=== PATIENT | female | born 1980 | race African-American/Black ===

== ENCOUNTER 2018-11-04 19:09 | Emergency (ER) | payer OTHER ==
--- NOTE | 2018-11-04 20:06 | ER Document Report ---
ED Medical Screen (RME) - General Chief Complaint: Vaginal Pain Stated Complaint: VAGINAL PAIN Time Seen by Provider: 11/04/18 20:00 Primary Care Provider: VIKRAM JUAN [Primary Care Provider] - Follow up as needed Information source: Patient Notes: Patient presents complaining of pressure to the vagina and feeling like something is falling out of her. Patient complains of dysuria and urinary frequency. Patient states she has been treating UTI symptoms with AZO [id number]. Patient denies any vaginal bleeding or discharge. I have greeted and performed a rapid initial assessment of this patient. A comprehensive ED assessment and evaluation of the patient, analysis of test results and completion of the medical decision making process will be conducted by additional ED providers. TRAVEL OUTSIDE OF THE [place] IN LAST 30 DAYS: No - Related Data Allergies/Adverse Reactions: No Known Allergies Allergy (Unverified 11/04/18 19:10) Past Medical History Pulmonary Medical History: Reports: Hx Asthma Renal/ Medical History: Denies: Hx Peritoneal Dialysis Past Surgical History: Reports: Hx Section Physical Exam - Vital signs Vitals: Temp Pulse Resp BP Pulse Ox 98.5 F 93 16 126/75 H 96 11/04/18 19:21 11/04/18 19:21 11/04/18 19:21 11/04/18 19:21 11/04/18 19:21 - General Notes: Patient with lower lumbar paraspinal tenderness Course - Vital Signs Vital signs: Temp Pulse Resp BP Pulse Ox 98.5 F 93 16 126/75 H 96 11/04/18 19:21 11/04/18 19:21 11/04/18 19:21 11/04/18 19:21 11/04/18 19:21 Doctor's Discharge - Discharge Referrals: VIKRAM JUAN [Primary Care Provider] - Follow up as needed
[2018-11-04 21:54] LABS: APPEARANCE,URINE CLOUDY; BILIRUBIN,URINE NEGATIVE (NEGATIVE); COLOR,URINE YELLOW; GLUCOSE, URINE NEGATIVE (NEGATIVE); KETONES,URINE NEGATIVE (NEGATIVE); LEUKOCYTE ESTERASE,URINE NEGATIVE (NEGATIVE); NITRITE,URINE NEGATIVE (NEGATIVE); PROTEIN,URINE NEGATIVE (NEGATIVE); UROBILINOGEN,URINE NEGATIVE mg/dL (<2.0)
[2018-11-05 01:04] VITALS: BP 120/74
--- NOTE | 2018-11-05 01:47 | ER Document Report ---
ED General - General Chief Complaint: Vaginal Pain Stated Complaint: VAGINAL PAIN Time Seen by Provider: 11/04/18 20:00 Primary Care Provider: VIKRMA JUAN [NO LOCAL MD] - Follow up as needed Notes: Patient is a 37-year-old female without chronic medical problems who presents with complaints of something falling out of her vagina. Patient states that for the past 1 to 2 weeks she has had frequent urinary urgency, discomfort with urination, and feeling like something is falling out of her vagina. Describes a aching, throbbing, intermittent discomfort generally to when she feels that she has to urinate. No exacerbating or alleviating factors. The patient has not seen her primary doctor or [facility] regarding today's concerns. Denies fever, constitutional symptoms or lower abdominal pain. TRAVEL OUTSIDE OF THE [place] IN LAST 30 DAYS: No - Related Data Allergies/Adverse Reactions: No Known Allergies Allergy (Unverified 11/04/18 19:10) Past Medical History - General Information source: Patient - Social History Smoking Status: Never Smoker Frequency of alcohol use: None Drug Abuse: None Lives with: Family Family History: Reviewed & Not Pertinent Patient has suicidal ideation: No Patient has homicidal ideation: No Pulmonary Medical History: Reports: Hx Asthma Renal/ Medical History: Denies: Hx Peritoneal Dialysis Past Surgical History: Reports: Hx Section Review of Systems - Review of Systems Notes: Constitutional: Negative for fever. HENT: Negative for sore throat. Eyes: Negative for visual changes. Cardiovascular: Negative for chest pain. Respiratory: Negative for shortness of breath. Gastrointestinal: Negative for abdominal pain, vomiting or diarrhea. Genitourinary: Positive for urinary frequency, bladder prolapse Musculoskeletal: Negative for back pain. Skin: Negative for rash. Neurological: Negative for headaches, weakness or numbness. 10 point ROS negative except as marked above and in HPI. Physical Exam - Vital signs Vitals: Temp Pulse Resp BP Pulse Ox 98.5 F 93 16 126/75 H 96 11/04/18 19:21 11/04/18 19:21 11/04/18 19:21 11/04/18 19:21 11/04/18 19:21 Interpretation: Normal Notes: PHYSICAL EXAMINATION: GENERAL: Well-appearing, well-nourished and in no acute distress. HEAD: Atraumatic, normocephalic. EYES: Pupils equal round and reactive to light, extraocular movements intact, sclera anicteric, conjunctiva are normal. ENT: nares patent, oropharynx clear without exudates. Moist mucous membranes. NECK: Normal range of motion, supple without lymphadenopathy LUNGS: Breath sounds clear to auscultation bilaterally and equal. No wheezes rales or rhonchi. HEART: Regular rate and rhythm without murmurs ABDOMEN: Soft, nontender, normoactive bowel sounds. No guarding, no rebound. No masses appreciated. : There is an apparent bladder prolapse. No cervical motion tenderness. No adnexal tenderness to palpation. EXTREMITIES: Normal range of motion, no pitting or edema. No cyanosis. NEUROLOGICAL: No focal neurological deficits. Moves all extremities spontaneously and on command. PSYCH: Normal mood, normal affect. SKIN: Warm, Dry, normal turgor, no rashes or lesions noted. Course - Re-evaluation Re-evalutation: 11/05/18 01:49 Findings are consistent with a bladder prolapse. Patient is otherwise well in appearance, no focal abdominal tenderness on exam. exam notable only for bladder prolapse. Urinalysis is unremarkable without evidence of infection. I have advised the patient follow-up with [facility] for consideration of surgical correction. At this time will discharge with return precautions and follow-up recommendations. Verbal discharge instructions given a the bedside and opportunity for questions given. Medication warnings reviewed. Patient is in agreement with this plan and has verbalized understanding of return precautions and the need for primary care follow-up in the next 24-72 hours. - Vital Signs Vital signs: Temp Pulse Resp BP Pulse Ox 97.9 F 86 18 120/74 99 11/05/18 01:02 11/05/18 01:02 11/05/18 01:02 11/05/18 01:02 11/05/18 01:02 - Laboratory Laboratory results interpreted by me: 11/04/18 20:34 Urine Blood MODERATE H Discharge - Discharge Clinical Impression: Urinary frequency, Bladder prolapse Condition: Good Disposition: HOME, SELF-CARE Additional Instructions: You were seen today for urinary frequency and feeling like something has fallen from her vagina. It appears that you have a bladder prolapse. I strongly encourage you to follow-up with [facility] for consideration of correction. Return to the emergency room immediately if you develop fever greater than 100.4 F, worsening pain, inability to urinate, pass out, severe abdominal pain, or dev elop any other symptoms that are worrisome to you. Referrals: LOCALMD,NO [NO LOCAL MD] - Follow up as needed DANE GONSALES MD [ACTIVE STAFF] - Follow up in 3-5 days
== END 2018-11-05 02:06 | disposition home or self-care (01) ==
LOC: ER 19:09
DX: R35.0 Frequency of micturition (principal); N81.10 Cystocele, unspecified; R10.2 Pelvic and perineal pain
CPT/HCPCS: 81001; 81025; 87086; 99283

== ENCOUNTER 2019-01-24 07:19 | Day surgery (SDC) | payer OTHER ==
[2019-01-21 11:03] LABS: HEMATOCRIT 44.4 % (36.0-47.0); HEMOGLOBIN 14.8 g/dL (12.0-15.5); MEAN CORPUSCULAR HEMOGLOBIN 28.4 pg (27.0-33.4); MEAN CORPUSCULAR HGB CONC 33.3 g/dL (32.0-36.0); MEAN CORPUSCULAR VOLUME 85 fl (80-97); PLATELET COUNT 245 10^3/uL (150-450)
[2019-01-21 11:29] LABS: ALBUMIN 4.5 g/dL (3.5-5.0); ALKALINE PHOSPHATASE 59 U/L (38-126); ANION GAP 12 (5-19); ASPARTATE AMINO TRANSFERASE 17 U/L (14-36); BILIRUBIN,DIRECT 0.2 mg/dL (0.0-0.4); BILIRUBIN,TOTAL 0.3 mg/dL (0.2-1.3); BLOOD UREA NITROGEN 14 mg/dL (7-20); CALCIUM 9.9 mg/dL (8.4-10.2); CARBON DIOXIDE 25 mmol/L (22-30); CHLORIDE 104 mmol/L (98-107); GLUCOSE 88 mg/dL (75-110); POTASSIUM 4.1 mmol/L (3.6-5.0); TOTAL PROTEIN 7.2 g/dL (6.3-8.2)
[2019-01-21 12:07] LABS: AMORPHOUS SEDIMENT,URINE TRACE /HPF; APPEARANCE,URINE CLOUDY; BILIRUBIN,URINE NEGATIVE (NEGATIVE); COLOR,URINE YELLOW; GLUCOSE, URINE NEGATIVE (NEGATIVE); KETONES,URINE NEGATIVE (NEGATIVE); LEUKOCYTE ESTERASE,URINE NEGATIVE (NEGATIVE); NITRITE,URINE NEGATIVE (NEGATIVE); PROTEIN,URINE NEGATIVE (NEGATIVE); UROBILINOGEN,URINE NEGATIVE mg/dL (<2.0)
[~2019-01-24 07:19] MED LIST: CEFAZOLIN SODIUM 2 GM in DEXTROSE 5%-WATER 100 ML IV PRN; LACTATED RINGERS 1000 ML IV PRN
[2019-01-24] MEDS ORDERED: LIDOCAINE 1%/EPINEPHRINE INJ 20 ML VIAL ONE (07:34)
[2019-01-24] MEDS ORDERED: BUPIVACAINE HCL 0.25% /EPINEPHRINE INJ/PF 30 ML SDV ONE (07:35)
[2019-01-24] MEDS ORDERED: FENTANYL CITRATE INJ/PF 250 MCG/5 ML AMPULE ONE (09:56)
[2019-01-24] MEDS ORDERED: PROPOFOL INJ 200 MG/20 ML VIAL IV ONE (09:57)
[2019-01-24] MEDS ORDERED: MIDAZOLAM 2 MG/2 ML INJ ONE (09:57)
[2019-01-24] MEDS ORDERED: DIPHENHYDRAMINE HCL 50 MG/ML VIAL IV PRN (10:04)
[2019-01-24] MEDS ORDERED: FENTANYL CITRATE INJ/PF 100 MCG/2 ML AMPUL IV PRN ×3 (10:04)
[2019-01-24] MEDS ORDERED: MEPERIDINE HCL/PF INJ 25 MG/1 ML DISP.SYRIN IV PRN (10:04)
[2019-01-24] MEDS ORDERED: OXYCODONE-ACETAMINOPHEN 5-325 MG TABLET PO PRN ×4 (10:04→14:38)
[2019-01-24] MEDS ORDERED: PROMETHAZINE HCL INJ 25 MG/1 ML VIAL IV PRN ×3 (10:04→14:38)
[2019-01-24] MEDS ORDERED: BUPIVACAINE HCL 0.25 % INJ/PF (2.5 MG/1 ML) 30 ML VIAL ONE (10:05)
[2019-01-24] MEDS ORDERED: EPHEDRINE SULFATE INJ 50 MG/1 ML AMPULE ONE (11:34)
[2019-01-24] MEDS ORDERED: HYDROMORPHONE HCL INJ/PF 2 MG/ML AMPULE ONE (13:01)
[2019-01-24] MEDS ORDERED: METHYLENE BLUE 50 MG/10 ML AMPULE ONE (14:08)
[2019-01-24] MEDS ORDERED: ACETAMINOPHEN 1,000 MG/100 ML RTUPB IV PRN (14:38)
[2019-01-24] MEDS ORDERED: ACETAMINOPHEN 325 MG TABLET PO PRN (14:38)
[2019-01-24] MEDS ORDERED: DEXTROSE 40% GEL 15 GM TUBE PO PRN ×2 (14:38)
[2019-01-24] MEDS ORDERED: GLUCAGON,HUMAN RECOMB 1 MG INJ SUBCUT PRN (14:38)
[2019-01-24] MEDS ORDERED: DEXTROSE 50%-WATER 25 GM/50 ML DISP.SYRIN IV PRN ×2 (14:38)
[2019-01-24] MEDS ORDERED: HYDROMORPHONE HCL INJ/PF 2 MG/ML AMPULE IV PRN (14:38)
--- NOTE | 2019-01-24 14:46 | Brief Operative Note ---
BRIEF OPERATIVE REPORT DATE OF SURGERY: 01/24/19 TIME OF SURGERY: 10:00 PREOPERATIVE DIAGNOSIS: 1. Uterine prolapse. 2. Cystocele POSTOPERATIVE DIAGNOSIS: same plus mild cystocele SURGEON: MEERA HILL [address] PACKER OPERATOR: BALBINA LOPEZ FINDINGS: Uterus measured 9 x 5 cm; normal appearing bilateral fallopian tubes and ovaries; baldder scarring secondary to hisoryof section COMPLICATIONS: none ESTIMATED BLOOD LOSS: 750 ml TISSUE REMOVED OR ALTERED: Uterus, bilateral tubes and ovaries TECHNICAL PROCEDURE: 1. LAVHBSO. 2. Cystoscopy
[2019-01-24] MEDS ORDERED: CEFAZOLIN INJ 1 GM VIAL ONE (14:48)
[2019-01-24] MEDS ORDERED: CEFAZOLIN 1 GM/D5W RTU 1 GM/50 ML RTUPB IV SCH ×2 (15:00→22:00)
[2019-01-24] MEDS: KETOROLAC TROMETHAMINE INJ/PF 30 MG/1 ML SDV IV SCH (17:08)
[2019-01-24] MEDS: RINGERS SOLUTION,LACTATED 1,000 ML IV PRN (17:14)
[2019-01-24] MEDS ORDERED: IBUPROFEN 800 MG TABLET PO SCH (18:00)
[2019-01-24] MEDS: DOCUSATE SODIUM 100 MG CAPSULE PO SCH (18:10)
--- NOTE | 2019-01-24 18:22 | Operative Report ---
Operative Report DATE OF SURGERY: 01/24/19 PREOPERATIVE DIAGNOSIS: 1. Uterine prolapse. 2. Mild cystocele. 3. History of breast cancer POSTOPERATIVE DIAGNOSIS: Same OPERATION: 1. Laparoscopic assisted vaginal hysterectomy with bilateral salpingo-oophorectomy. 2. Cystoscopy SURGEON: MEERA HILL [address] PRODUCER: BALBINA LOPEZ ANESTHESIA: GA TISSUE REMOVED OR ALTERED: Uterus, bilateral tubes and ovaries COMPLICATIONS: None QUANTITATIVE BLOOD LOSS: 750 INTRAOPERATIVE FINDINGS: Normal-appearing uterus, which measured 9 x 5 cm; normal-appearing bilateral fallopian tubes and ovaries; mild cystocele PROCEDURE: The patient was taken to the operating room where general anesthesia was obtained. The patient was then prepped and placed in the dorsal supine position with lithotomy and prepped and draped in the usual fashion. A speculum was then placed in the patient's vagina and the cervix grasped with a single-tooth tenaculum at approximately the 12 o'clock position of the anterior lip of the cervix. The large V-Care device was then placed and suture placed at the 12 o'clock position as well in order to maintain cut against the cervix during procedure. Double-tooth tenaculum and speculum were then removed from the patient's cervix and vagina. Attention was then turned to the abdomen where a 5 mm umbilical skin incision was made and the trocar and laparoscope were inserted into the abdominal cavity. The abdomen was insufflated with carbon dioxide approximately 4 L. Survey of the patient's abdomen and pelvis were performed with findings as noted above. At this time 5mm skin incisions were made approximately 2 cm medial and 4 cm s uperior to the anterior iliac spine on both the left and the right and then a third and fourth trocar sites placed approximately 4 cm superior to these on both the left and right. 5 mm trochars placed at all of the sites. At this time the right cornua was grasped and the right fallopian tube and utero-ovarian ligament and round ligaments were cauterized and transected in the usual fashion with the Enseal device. The right and left fallopian tubes and ovaries were then transected and placed in the posterior cul-de-sac, for later retrieval. The remainder of the uterine vessels and anterior and posterior leaves of the broad ligament, as well as cardinal and uterosacral ligaments were coagulated and transected in a serial fashion down to the level of the uterine artery. The uterine artery was then identified and cauterized and transected in the usual fashion with the Enseal device. The anterior leaf of the broad ligament was then dissected to the midline establishing a bladder flap with a combination of blunt and sharp dissection. It was noted that the patient had bladder scarring secondary to her history of a section. The J-hook cautery was used to help dissect the peritoneum to create the bladder flap. Sharp dissection made superiorly bilaterally to the level of the internal os of the cervix. Cautery was then used to make the anterior and posterior colpotomies over the V-care device in a circumferential fashion. When the first cut was made, the balloon (tip) of the V care device perforated through the lower uterine segment. The pneumoperitoneum was then lost. Dr. Lopez into the vagina and tried to reposition the V care device without success. Therefore, the rest of the hysterectomy was performed vaginally. The CO2 gas was then turned off. A weighted speculum was then placed in the patient's vagina. The anterior lip of the cervix was then grasped with a Marianela tenaculum. Next, the cervix was circumferentially incised with a Bovie and the bladder dissected off the pubovesical cervical fascia anteriorly with an open Ray-Klaudia and Metzenbaum scissors. The posterior cul-de-sac was then entered sharply. At this point, a Jonh clamp was placed over the uterosacral ligaments on either side. They were then transected and suture ligated with 0 Vicryl. Hemostasis was noted. The cardinal ligaments were then clamped on both sides, transected and suture-ligated in a similar fashion. Attempt was made to enter anteriorly but the plane was not located. The uterine arteries and the anne-marie ligament were then serially clamped with Jonh clamps, transected and suture- ligated on both sides. There was bleeding noted. The fundus of the uterus was then grasped with Marianela tenaculums and flipped and brought out of the vagina. Both ovaries and tubes were located in the posterior cul-de-sac and removed. Both specimens were passed off to the OR tech. Attention was then turned to closing the vaginal cuff. The peritoneum was then closed with 2-0 Vicryl. The angles were then closed in a [id number] stitches of 0 Vicryl and transfixed to the ipsilateral cardinal and uterosacral ligaments. The remainder of the vaginal cuff was then closed with 0 Vicryl in an interrupted fashion. Hemostasis was noted. Attention was then returned to the patient's abdomen where the CO2 gas was then turned back on. Evaluation of the vaginal cuff showed a small amount of oozing, which FloSeal was placed. The abdomen was copiously irrigated with warm normal saline. Attention was then turned to the patient's bladder, where she was given methyle ne blue, prior to evaluating the bladder for any ureteral injury. Dr. Lopez performed the cystoscopy while I placed a FloSeal and took laparoscopic pictures. When hemostasis was assured inside of the abdomen, I closed all 5 abdominal port sites with 4-0 Vicryl, while Dr. Lopez proceeded with the cystoscopy. Methylene blue was seen jetting from the right and left ureteral orifices. The scope was then removed from the patient's bladder and the Sow catheter was replaced. Patient tolerated the procedures well. Sponge, lap, needle and instrument counts were correct x2. Patient was given 2 g of Ancef prior to the start of the procedure. The patient taken to the recovery room in stable condition. Dr. Lopez's assistance was vital in performing this surgery in a efficient and timely fashion.
[2019-01-24] MEDS ORDERED: HYDROMORPHONE HCL 2 MG TABLET PO PRN (18:27)
[2019-01-24] MEDS ORDERED: ACETAMINOPHEN WITH CODEINE #3 TABLET PO PRN (18:28)
[2019-01-24] MEDS ORDERED: ACETAMINOPHEN WITH CODEINE #3 TABLET ONE (18:49)
[2019-01-24] MEDS ORDERED: ROCURONIUM BROMIDE INJ 50 MG/5 ML VIAL IV ONE (20:34)
[2019-01-24] MEDS ORDERED: DEXAMETHASONE SOD PHOSPHATE INJ 4 MG/1 ML VIAL ONE (20:34)
[2019-01-24] MEDS ORDERED: ONDANSETRON HCL INJ/PF 4 MG/2 ML SDV ONE (20:34)
[2019-01-24] MEDS ORDERED: GLYCOPYRROLATE 1 MG/5 ML VIAL ONE (20:34)
[2019-01-24] MEDS ORDERED: LIDOCAINE 2% INJ-PF (20 MG/ML) 2 ML AMPUL ONE (20:34)
[2019-01-24] MEDS ORDERED: NEOSTIGMINE METHYLSULFATE 10 MG/10 ML VIAL ONE (20:34)
[2019-01-24] MEDS: ACETAMINOPHEN WITH CODEINE #3 TABLET PO PRN (21:51)
[2019-01-24] MEDS ORDERED: KETOROLAC TROMETHAMINE INJ/PF 30 MG/1 ML SDV IV SCH ×2 (22:00)
[2019-01-24] MEDS: CEFAZOLIN SODIUM 1 GM in DEXTROSE 5%-WATER 50 ML IV SCH (23:42)
[2019-01-24] MEDS: HYDROMORPHONE HCL INJ/PF 2 MG/ML AMPULE IV PRN (23:54)
[2019-01-25] MEDS: RINGERS SOLUTION,LACTATED 1,000 ML IV PRN (01:44)
[2019-01-25] MEDS: KETOROLAC TROMETHAMINE INJ/PF 30 MG/1 ML SDV IV SCH ×2 (02:14→09:10)
[2019-01-25] MEDS ORDERED: PHENAZOPYRIDINE HCL 200 MG TABLET ONE (05:10)
[2019-01-25] MEDS: CEFAZOLIN SODIUM 1 GM in DEXTROSE 5%-WATER 50 ML IV SCH (05:44)
[2019-01-25] MEDS: ACETAMINOPHEN WITH CODEINE #3 TABLET PO PRN ×2 (05:45→15:04)
[2019-01-25] MEDS: PHENAZOPYRIDINE HCL 200 MG TABLET PO SCH ×2 (05:45→15:05)
[2019-01-25 07:50] LABS: HEMATOCRIT 32.3 % (36.0-47.0); HEMOGLOBIN 10.8 g/dL (12.0-15.5); MEAN CORPUSCULAR HEMOGLOBIN 28.3 pg (27.0-33.4); MEAN CORPUSCULAR HGB CONC 33.4 g/dL (32.0-36.0); MEAN CORPUSCULAR VOLUME 85 fl (80-97); PLATELET COUNT 243 10^3/uL (150-450); RED BLOOD COUNT 3.81 10^6/uL (3.72-5.28); RED CELL DISTRIBUTION WIDTH 13.7 % (11.5-14.0); WHITE BLOOD COUNT 13.6 10^3/uL (4.0-10.5)
[2019-01-25] MEDS: DOCUSATE SODIUM 100 MG CAPSULE PO SCH (09:12)
[2019-01-25] MEDS: HYDROMORPHONE HCL INJ/PF 2 MG/ML AMPULE IV PRN (09:27)
[2019-01-25] MEDS: SIMETHICONE 80 MG TAB.CHEW PO PRN ×2 (10:02→16:29)
[2019-01-25] MEDS ORDERED: LORAZEPAM INJ 2 MG/1 ML VIAL IV ONE (11:35)
--- NOTE | 2019-01-25 11:58 | PDOC DISCHARGE SUMMARY ---
General - Admit/Disc Date/PCP Admission Date/Primary Care Provider: CHASIDY LOERA MD Discharge Date: 01/25/19 - Discharge Diagnosis (1) S/P laparoscopic assisted vaginal hysterectomy (LAV[facility]) Is this a current diagnosis for this admission?: Yes (2) Female genital prolapse Is this a current diagnosis for this admission?: Yes (3) OAB (overactive bladder) Is this a current diagnosis for this admission?: Yes - Additional Information Resuscitation Status: Full Code Discharge Diet: Regular Discharge Activity: Balance Activity w/Rest, No Lifting Over 10 Pounds, Slowly Increase Activity Home Medications: Albuterol Sulfate [Proair Hfa Inhalation Aerosol 8.5 gm Mdi] 1 puff IH Q4 PRN 11/05/18 Fluticasone Propionate [Flovent HFA 220 mcg MDI] 1 puff IH PRN PRN 11/05/18 Phenazopyridine HCl [Azo Urinary Pain Relief] 97.5 mg PO PRN PRN 11/05/18 Montelukast Sodium [Singulair 10 mg Tablet] 10 mg PO DAILY 01/21/19 Oxybutynin Chloride [Ditropan 5 Mg Tablet] 5 mg PO DAILY 01/24/19 Sertraline HCl [Zoloft 50 mg Tablet] 50 mg PO DAILY 01/24/19 History of Present Illness Patient complains of: I feel like something is falling out of my vagina History of Present Illness: BRAXTON CASANOVA is a 38 year old female presented to the office c omplaining of feeling a bulge in her vagina. On examination, she had uterine prolapse with a mild cystocele. She also has overactive bladder and is currently using Ditropan. This patient requested a hysterectomy. We reviewed her family history. She has several maternal relatives with breast cancer, therefore she decided to have her ovaries removed also. Hospital Course Hospital Course: Hospital course was essentially uneventful by postop day #1, the patient was ambulating without difficulty. She was complaining of bladder spasms and was given Pyridium. I explained to her that the Sow catheter can cause some spasms. She denies chest pain, shortness of breath, fever/chills and nausea/vomiting. She is tolerating a regular diet. She has scant vaginal bleeding. She is more painful than she expected. However, her Tylenol with codeine relieves her pain. Physical Exam - Physical Exam Vital Signs: Temp Pulse Resp BP Pulse Ox 98.1 F 101 H 14 109/58 L 96 01/25/19 08:02 01/25/19 08:02 01/25/19 08:02 01/25/19 08:02 01/25/19 08:02 Intake & Output 01/24/19 01/25/19 01/26/19 06:59 06:59 06:59 Intake Total 5290 Output Total 2225 300 Balance 3065 -300 Weight 81.65 kg General appearance: PRESENT: no acute distress Respiratory exam: PRESENT: clear to auscultation arabella Cardiovascular exam: PRESENT: RRR GI/Abdominal exam: PRESENT: normal bowel sounds, soft - Appropriate tenderness; all port site incisions clean/dry/intact Extremities exam: ABSENT: calf tenderness, clubbing, full ROM, joint swelling, pedal edema, tenderness, +1 edema, +2 edema, other Result Laboratory Results: 01/25/19 07:16 01/21/19 10:23 01/25/19 07:16 WBC 13.6 H RBC 3.81 Hgb 10.8 L Hct 32.3 L MCV 85 MCH 28.3 MCHC 33.4 RDW 13.7 Plt Count 243 Plan Discharge Plan: 1. Discharge home today 2. Rx Climara patch, Tylenol with codeine, ibuprofen 800 mg and Ativan 0.5 mg 3. Follow-up in the office as scheduled or sooner if needed Acute Heart Failure - Is this a Heart Failure Patient?: No
[2019-01-25] MEDS ORDERED: ESTRADIOL 0.1 MG/24 HR PATCH.TDWK TD ONE (13:00)
[2019-01-25] MEDS ORDERED: IBUPROFEN 800 MG TABLET PO SCH (16:00)
[2019-01-25 16:20] VITALS: BP 110/59
== END 2019-01-25 16:51 | disposition home or self-care (01) ==
LOC: OROUT 07:19 → 2N 16:33 → OROUT 01-25 16:51
PROVIDERS: ATTEND Obstetrics & Gynecology
DX: D25.1 Intramural leiomyoma of uterus (principal); D25.2 Subserosal leiomyoma of uterus; N83.02 Follicular cyst of left ovary; N83.01 Follicular cyst of right ovary; N83.8 Other noninflammatory disorders of ovary, fallopian tube and broad ligament; N81.9 Female genital prolapse, unspecified; N32.81 Overactive bladder; Z79.51 Long term (current) use of inhaled steroids; Z79.899 Other long term (current) drug therapy; J45.909 Unspecified asthma, uncomplicated; Z01.818 Encounter for other preprocedural examination; N81.10 Cystocele, unspecified; Z85.3 Personal history of malignant neoplasm of breast
CPT/HCPCS: 86900; 86901; 36415 ×2; 86850; 84703; 85027 ×2; 81025; 80053; 81001; 88307 ×2; 94799; 00840; 58552; J2250; J0690 ×2; J3490 ×6; J1100; J3010; J1885 ×2; J2710; J1170 ×2; J2060; J2405; J7060 ×3; J7120 ×2; J2704; Q9968; 840

== ENCOUNTER 2019-01-29 19:50 | Emergency (ER) | payer OTHER ==
[2019-01-29] MEDS ORDERED: PHENAZOPYRIDINE HCL 200 MG TABLET PO ONE (21:03)
--- NOTE | 2019-01-29 21:05 | ER Document Report ---
ED Medical Screen (RME) - General Chief Complaint: Vaginal Pain Stated Complaint: VAGINAL PAIN Time Seen by Provider: 01/29/19 20:59 Primary Care Provider: CHASIDY LOERA MD [Primary Care Provider] - Follow up as needed Mode of Arrival: Ambulatory Information source: Patient Notes: This 38-year-old female presents with complaints of severe vaginal pain pain with void urgency hesitancy. Patient reports she had a full hysterectomy on Sunday by Dr. culp. She reports she started having pain today. She is unsure of fevers reports she is had chills. Reports she is been taking Tylenol for the pain nothing is touching it. She reports she feels like she is swollen and has extreme pain. She reports she contacted Dr. culp today and was told that she probably did not have a UTI because she had plenty of antibiotics during her surgery. Patient is not taking antibiotics now. I have greeted and performed a rapid initial assessment of this patient. A comprehensive ED assessment and evaluation of the patient, analysis of test results and completion of the medical decision making process will be conducted by additional ED providers. Dictation of this chart was performed using voice recognition software; therefore, there may be some unintended grammatical errors. TRAVEL OUTSIDE OF THE [place] IN LAST 30 DAYS: No - Related Data Allergies/Adverse Reactions: Latex, Natural Rubber Adverse Reaction (Verified 01/21/19 10:44) Past Medical History - Social History Frequency of alcohol use: None Drug Abuse: None - Past Medical History Cardiac Medical History: Denies: Hx Coronary Artery Disease, Hx Hypertension Pulmonary Medical History: Reports: Hx Asthma - MILD, Hx Bronchitis Denies: Hx COPD, Hx Pneumonia Neurological Medical History: Denies: Hx Cerebrovascular Accident, Hx Seizures Renal/ Medical History: Denies: Hx Peritoneal Dialysis Malignancy Medical History: Musculoskeltal Medical History: Denies Hx Arthritis Past Surgical History: Reports: Hx Section - Immunizations Hx Diphtheria, Pertussis, Tetanus Vaccination: Yes Physical Exam - Vital signs Vitals: Temp Pulse Resp BP Pulse Ox 98.8 F 88 24 H 119/69 100 01/29/19 20:17 01/29/19 20:17 01/29/19 20:17 01/29/19 20:17 01/29/19 20:17 Course - Vital Signs Vital signs: Temp Pulse Resp BP Pulse Ox 98.8 F 88 24 H 119/69 100 01/29/19 20:17 01/29/19 20:17 01/29/19 20:17 01/29/19 20:17 01/29/19 20:17 Doctor's Discharge - Discharge Referrals: CHASIDY LOERA MD [Primary Care Provider] - Follow up as needed
[2019-01-29 21:22] LABS: APPEARANCE,URINE SLIGHTLY-CLOUDY; BILIRUBIN,URINE NEGATIVE (NEGATIVE); COLOR,URINE AMBER; GLUCOSE, URINE NEGATIVE (NEGATIVE); KETONES,URINE NEGATIVE (NEGATIVE); LEUKOCYTE ESTERASE,URINE MODERATE (NEGATIVE); NITRITE,URINE POSITIVE (NEGATIVE); PROTEIN,URINE 30 mg/dL (NEGATIVE); URINE SPECIFIC GRAVITY 1.011
[2019-01-29 21:36] LABS: ABSOLUTE EOSINOPHILS # (AUTO) 0.1 10^3/uL (0.0-0.6); ABSOLUTE LYMPHOCYTES (AUTO) 1.5 10^3/uL (0.5-4.7); ABSOLUTE MONOCYTES (AUTO) 0.5 10^3/uL (0.1-1.4); ABSOLUTE NEUT (AUTO) 3.7 10^3/uL (1.7-8.2); BASOPHILS % (AUTO) 0.5 % (0-2); EOSINOPHILS % (AUTO) 2.4 % (0-6); HEMATOCRIT 35.4 % (36.0-47.0); HEMOGLOBIN 11.7 g/dL (12.0-15.5); LYMPHOCYTES % (AUTO) 25.7 % (13-45); MEAN CORPUSCULAR HEMOGLOBIN 28.1 pg (27.0-33.4); MEAN CORPUSCULAR HGB CONC 33.1 g/dL (32.0-36.0); MEAN CORPUSCULAR VOLUME 85 fl (80-97); MONOCYTES % (AUTO) 8.4 % (3-13); PLATELET COUNT 342 10^3/uL (150-450); RED BLOOD COUNT 4.17 10^6/uL (3.72-5.28); RED CELL DISTRIBUTION WIDTH 13.7 % (11.5-14.0); TOTAL CELLS COUNTED % (AUTO) 100 %; WHITE BLOOD COUNT 5.8 10^3/uL (4.0-10.5)
[2019-01-29 21:59] LABS: ALBUMIN 4.3 g/dL (3.5-5.0); ALKALINE PHOSPHATASE 57 U/L (38-126); ANION GAP 10 (5-19); ASPARTATE AMINO TRANSFERASE 18 U/L (14-36); BILIRUBIN,TOTAL 0.3 mg/dL (0.2-1.3); BLOOD UREA NITROGEN 11 mg/dL (7-20); CALCIUM 9.8 mg/dL (8.4-10.2); CARBON DIOXIDE 27 mmol/L (22-30); CHLORIDE 103 mmol/L (98-107); GLUCOSE 94 mg/dL (75-110); POTASSIUM 4.2 mmol/L (3.6-5.0)
[2019-01-30] MEDS ORDERED: ONDANSETRON HCL INJ/PF 4 MG/2 ML SDV IV ONE (03:07)
[2019-01-30] MEDS ORDERED: MORPHINE SULFATE 10 MG/ML INJ IV ONE (03:07)
--- NOTE | 2019-01-30 03:31 | ER Document Report ---
ED GI/ - General Chief Complaint: Vaginal Pain Stated Complaint: VAGINAL PAIN Time Seen by Provider: 01/29/19 20:59 Primary Care Provider: MEERA COSBY DO [ACTIVE STAFF] - Follow up tomorrow Mode of Arrival: Ambulatory Notes: Patient is a 38-year-old female that comes to the emergency department for chief complaint of lower abdominal pain and painful urination. She states she is approximately 6 days postop total vaginal hysterectomy by Dr. Figueroa at this hospital. She states she was doing reasonably well but now she has had increasing pain and specifically a lot of pain with urination. She states she does not have any bleeding unless she urinates. She denies vaginal discharge. She denies fever/chills, vomiting, flank pain. TRAVEL OUTSIDE OF THE [place] IN LAST 30 DAYS: No - Related Data Allergies/Adverse Reactions: Latex, Natural Rubber Adverse Reaction (Verified 01/21/19 10:44) Past Medical History - General Information source: Patient - Social History Smoking Status: Never Smoker Frequency of alcohol use: None Drug Abuse: None Lives with: Family Family History: Reviewed & Not Pertinent Patient has suicidal ideation: No Patient has homicidal ideation: No - Past Medical History Cardiac Medical History: Denies: Hx Coronary Artery Disease, Hx Hypertension Pulmonary Medical History: Reports: Hx Asthma - MILD, Hx Bronchitis Denies: Hx COPD, Hx Pneumonia Neurological Medical History: Denies: Hx Cerebrovascular Accident, Hx Seizures Renal/ Medical History: Denies: Hx Peritoneal Dialysis Malignancy Medical History: Musculoskeletal Medical History: Denies Hx Arthritis Past Surgical History: Reports: Hx Section - Immunizations Hx Diphtheria, Pertussis, Tetanus Vaccination: Yes Review of Systems - Review of Systems Constitutional: No symptoms reported EENT: No symptoms reported Cardiovascular: No symptoms reported Respiratory: No symptoms reported Gastrointestinal: See HPI Genitourinary: See HPI Female Genitourinary: See HPI Musculoskeletal: No symptoms reported Skin: No symptoms reported Hematologic/Lymphatic: No symptoms reported Neurological/Psychological: No symptoms reported Physical Exam - Vital signs Vitals: Temp Pulse Resp BP Pulse Ox 98.8 F 88 24 H 119/69 100 01/29/19 20:17 01/29/19 20:17 01/29/19 20:17 01/29/19 20:17 01/29/19 20:17 - Notes Notes: GENERAL: Alert, interacts well. No acute distress. Patient does move with some discomfort. HEAD: Normocephalic, atraumatic. EYES: Pupils equal, round, and reactive to light. Extraocular movements intact. ENT: Oral mucosa moist, tongue midline. Oropharynx unremarkable. Airway patent. LUNGS: Clear to auscultation bilaterally, no wheezes, rales, or rhonchi. No respiratory distress. HEART: Regular rate and rhythm. No murmur ABDOMEN: There are 4 small incisional abdominal wounds with good healing, no noted erythema, abnormal heat, or dehiscence. No noted tenderness over the area. There is some suprapubic tenderness on exam but the remaining abdomen is actually soft and benign. GENITOURINARY: Tenderness over the labia majora slightly worse on the right, this appears to be general soreness. No severe tenderness. No abnormal swelling, erythema, induration, fluctuance. Unremarkable otherwise. Exam performed with Sara PORTER at bedside. EXTREMITIES: Moves all 4 extremities spontaneously. No edema, normal radial and dorsalis pedis pulses bilaterally. No cyanosis. BACK: no cervical, thoracic, lumbar midline tenderness. No saddle anesthesia, normal distal neurovascular exam. Moves all extremities in full range of motion. NEUROLOGICAL: Alert and oriented x3. Normal speech. Cranial nerves II through XII grossly intact. PSYCH: Normal affect, normal mood. SKIN: Warm, dry, normal turgor. No rashes or lesions noted. Course - Re-evaluation Re-evalutation: Patient uncomfortable when I evaluated her but she states she just urinated and she had a lot of dysuria. No flank pain, soft benign abdomen with mild suprapubic tenderness but no signs of wound infection. Unremarkable vital signs. CBC, chemistry unremarkable. Urine does show positive nitrites, white blood cell, red blood cells. Patient has tenderness on external vaginal exam but no evidence of abscess. Appears to be soft tissue injury only. Patient is otherwise well-appearing. 01/30/19 03:[address] Figueroa, discussed patient's symptoms, work-up, evaluation. Because patient has suprapubic pain, painful urination, positive nitrites with white blood cells and red blood cells in the urine, patient will be treated with antibiotics. She states that patient received multiple doses of Ancef within the past week therefore she does not recommend a cephalosporin, she states that Augmentin or Macrobid would be more appropriate. Culture has been placed. She states she will call the patient on Sunday, patient was instructed of this. Dis cussed work-up, plan, follow-up, and return precautions with patient in detail. Patient states understanding and agreement. - Vital Signs Vital signs: Temp Pulse Resp BP Pulse Ox 98.4 F 84 17 122/63 94 01/30/19 04:53 01/30/19 04:53 01/30/19 04:53 01/30/19 04:53 01/30/19 04:53 - Laboratory Result Diagrams: 01/29/19 21:19 01/29/19 21:19 Laboratory results interpreted by me: 01/29/19 01/29/19 21:10 21:19 Hgb 11.7 L Hct 35.4 L Urine Protein 30 H Urine Blood MODERATE H Urine Nitrite POSITIVE H Urine Urobilinogen 4.0 H Ur Leukocyte Esterase MODERATE H Discharge - Discharge Clinical Impression: Dysuria, Post-op pain Abdominal pain Qualifiers: Abdominal location: lower abdomen, unspecified Qualified Code(s): R10.30 - Lower abdominal pain, unspecified Condition: Stable Disposition: HOME, SELF-CARE Additional Instructions: Your work-up does indicate a bladder infection. Take the antibiotics as p rescribed for this. Take the pain medication as prescribed if needed. We have a urine culture growing in our lab. I spoke with Dr. Figueroa, she will be contacting you tomorrow (Sunday). I recommend taking an over the counter probiotic while on the antibiotic to avoid diarrhea. Come back if you worsen including vomiting, fever, increased pain, or any other concerning or worsening symptoms. Prescriptions: Amox Tr/Potassium Clavulanate [Augmentin 875-125 Tablet] 1 tab PO BID 7 Days tablet Oxycodone HCl/Acetaminophen [Percocet 5-325 mg Tablet] 1 - 2 tab PO Q4H PRN #8 tablet PRN Reason: Phenazopyridine HCl [Pyridium 200 mg Tablet] 200 mg PO TID 2 Days #6 tablet Referrals: MEERA COSBY DO [ACTIVE STAFF] - Follow up tomorrow
[2019-01-30] MEDS ORDERED: AMOXICILLIN TRIHYDRATE 500 MG CAPSULE PO ONE (03:41)
[2019-01-30] MEDS ORDERED: AMOXICILLIN TR/POT CLAVULANATE 500-125 MG TAB PO ONE (03:41)
[2019-01-30] MEDS ORDERED: HYDROCODONE/ACETAMINOPHEN 5-325 MG (6 TAB/ER DISP) PO PRN (03:49)
[2019-01-30 04:57] VITALS: BP 122/63
== END 2019-01-30 04:58 | disposition home or self-care (01) ==
LOC: ER 19:50
DX: G89.18 Other acute postprocedural pain (principal); R30.0 Dysuria; R10.30 Lower abdominal pain, unspecified; R10.2 Pelvic and perineal pain; Z90.710 Acquired absence of both cervix and uterus; J45.909 Unspecified asthma, uncomplicated
CPT/HCPCS: 99284; 96374; 96375; 36415; 87040; 85025; 80053; 81001; J2270; J3490; J2405